=== PATIENT | male | born 1995 | race Caucasian/White ===

== ENCOUNTER 2018-01-18 19:46 | Emergency (ER) | payer OTHER | END 2018-01-18 22:47 | disposition home or self-care (01) | LOC: M ED 19:46 | DX: S80.11XA Contusion of right lower leg, initial encounter (principal); W50.1XXA Accidental kick by another person, initial encounter; Y92.39 Other specified sports and athletic area as the place of occurrence of the external cause | CPT/HCPCS: 73590 ==